=== PATIENT | male | born 1960 | race Caucasian/White ===

== ENCOUNTER 2019-07-09 07:44 | Outpatient (CLI) | payer OTHER, SELFPAY ==
--- NOTE | 2019-07-09 | EST_ITS ---
Patient Info Name: Steven Turner Age: 59 years : 1960 Gender: Male Ht: 67 in Wt: 140 lbs BSA: 1.73 m2 HR: 77 bpm BP: 125 / 75 mmHg Heart Rhythm: Sinus Rhythm Exam Date: 07/09/2019 9:36 AM Exam Location: [facility] Stress Patient Status: Outpatient Admit Date: 07/09/2019 Staff Ordering Physician: PHYSICIAN NOT ON STAFF, NONSTAFF Attending Provider: Dulce Flores ANP Exercise Technologist: Markus Campbell, GISELA, RT Exam Type: CA stress test treadmill w NM Study Info Indications R00.2 - Palpitations A nuclear stress test was performed. Summary 1. Nuclear test results to follow. 2. No ischemic ECG changes at a level of 88%MPHR. 3. Below average exercise capacity for age. Protocol: Manual Mode Stress ECG Details Stage: REST Duration (min): 5 min : 24 sec Nguyen: --- Speed (mph): 0.0 Grade (%): 0 HR (bpm): 78 SBP (mmHg): 125 DBP (mmHg): 75 METS: --- Stage: REST Duration (min): 17 min : 49 sec Nguyen: --- Speed (mph): 0.0 Grade (%): 0 HR (bpm): 84 SBP (mmHg): 125 DBP (mmHg): 75 METS: --- Stage: STAGE 1 Duration (min): 1 min : 0 sec Nguyen: --- Speed (mph): 1.7 Grade (%): 10 HR (bpm): 106 SBP (mmHg): 125 DBP (mmHg): 75 METS: --- Stage: STAGE 1 Duration (min): 2 min : 0 sec Nguyen: --- Speed (mph): 1.7 Grade (%): 10 HR (bpm): 109 SBP (mmHg): 125 DBP (mmHg): 75 METS: --- Stage: STAGE 1 Duration (min): 3 min : 0 sec Nguyen: --- Speed (mph): 1.7 Grade (%): 10 HR (bpm): 109 SBP (mmHg): 145 DBP (mmHg): 79 METS: --- Stage: STAGE 2 Duration (min): 1 min : 0 sec Nguyen: --- Speed (mph): 2.5 Grade (%): 12 HR (bpm): 116 SBP (mmHg): 145 DBP (mmHg): 79 METS: --- Stage: STAGE 2 Duration (min): 2 min : 0 sec Nguyen: --- Speed (mph): 2.5 Grade (%): 12 HR (bpm): 125 SBP (mmHg): 146 DBP (mmHg): 79 METS: --- Stage: STAGE 2 Duration (min): 3 min : 0 sec Nguyen: --- Speed (mph): 2.5 Grade (%): 12 HR (bpm): 133 SBP (mmHg): 146 DBP (mmHg): 79 METS: --- Stage: STAGE 3 Duration (min): 0 min : 12 sec Nguyen: --- Speed (mph): 3.4 Grade (%): 14 HR (bpm): 134 SBP (mmHg): 146 DBP (mmHg): 79 METS: --- Stage: RECOVERY Duration (min): 0 min : 47 sec Nguyen: --- Speed (mph): 2.0 Grade (%): 0 HR (bpm): 136 SBP (mmHg): 187 DBP (mmHg): 82 METS: --- Stage: RECOVERY Duration (min): 1 min : 47 sec Nguyen: --- Speed (mph): 0.0 Grade (%): 0 HR (bpm): 111 SBP (mmHg): 187 DBP (mmHg): 82 METS: --- Stage: RECOVERY Duration (min): 2 min : 47 sec Nguyen: --- Speed (mph): 0.0 Grade (%): 0 HR (bpm): 99 SBP (mmHg): 137 DBP (mmHg): 82 METS: --- Stage: RECOVERY Du
--- NOTE | ~2019-07-09 | US_ITS ---
EXAMINATION: US carotid duplex BI EXAM DATE: 07/09/2019 15:53 INDICATION: Dizziness, chest palpitations. Carotid arterial sclerosis. TECHNIQUE: Grayscale, color and pulsed Doppler images of the cervical carotid arteries were obtained . The degree of vessel stenosis is placed in one of the following categories: normal, <50% stenosis, 50-69% stenosis, >=70% stenosis but less than near-occlusion, near-occlusion, or occlusion. Note that percent stenosis relative to normal distal artery lumen diameter is indirectly measured from velocit y measurements as described by Alvin, et al. Radiology 2003; 229:340-346. There is no prior study fo r comparison. FINDINGS: RIGHT SIDE: Right common carotid artery peak systolic velocity (PSV in cm/s): 79 Right bulb/internal carotid artery peak systolic velocity (PSV in cm/s): 85 Right internal carotid artery end diastolic velocity (EDV in cm/s): 41 Right ICA/CCA peak systolic ratio: 1.1 Right external carotid artery peak systolic velocity (PSV in cm/s): 81 Right vertebral artery antegrade flow: yes There is no focal plaque identified. LEFT SIDE: Left common carotid artery peak systolic velocity (PSV in cm/s): 81 Left bulb/internal carotid artery peak systolic velocity (PSV in cm/s): 82 Left internal carotid artery end diastolic velocity (EDV in cm/s): 44 Left ICA/CCA peak systolic ratio: 1.0 Left external carotid artery peak systolic velocity (PSV in cm/s): 74 Left vertebral artery antegrade flow: yes There is mild carotid bulb plaque. Velocity and Doppler waveforms in the common and internal carotid arteries is normal. IMPRESSION: 1. Normal right internal carotid artery. 2. Less than 50 percent stenosis in the left internal carotid artery. > Reviewed, dictated and finalized at location A. [employer]
--- NOTE | ~2019-07-09 | NM_ITS ---
EXAMINATION: NM stress w perf spect multi DATE: 07/09/2019 11:09 INDICATION: Chest pain. Palpitations. TECHNIQUE: Rest images were obtained following intravenous administration of 10.9 mCi Tc99m tetrofosm in (Myoview). The patient performed an exercise activity. At peak exercise, 31.4 mCi Tc99m tetrofosmi n (Myoview) was administered intravenously, and stress images were obtained. Data was reconstructed i nto short axis and horizontal and vertical long axis SPECT images. Gated SPECT images were also obtai koffi. COMPARISON: None. FINDINGS: There is no definite reversible or fixed perfusion abnormality to suggest ischemia or infar ction. There is no segmental wall motion abnormality. Left ventricular ejection fraction measures 6 1%. IMPRESSION: 1. No definite ischemia or infarct. 2. Normal left ventricular ejection fraction measuring 61%. Reviewed, dictated and finalized at location A. [employer]
== END 2019-07-09 07:45 | disposition home or self-care (01) ==
DX: R00.2 Palpitations (principal); R07.9 Chest pain, unspecified; R42 Dizziness and giddiness
CPT/HCPCS: 78452; 93017; 93880; A9502